=== PATIENT | female | born 1965 | race Caucasian/White ===

== ENCOUNTER → 2016-11-12 | Day surgery (SDC) | payer OTHER ==
[~2016-11-12] VITALS: Ht 162.6 cm; Wt 92.4 kg
[~2016-11-12] MED LIST: NORCO 5-325 TA1 EACH PO; ONE DAILY WOME1 EAC1 PO; PRILOSEC20 MG PO; PROBIOTIC1 EAC1 PO; QUASENSE 0.15-1 EACH PO
--- NOTE | ~2016-11-12 | OR ---
PATIENT'S NAME: RODOLFO PATTERSON [facility] AGE: 51 Y [address] ROOM: [place] [id number] [place] [facility] [facility] [place]: 11/12/2016 OR/Procedure Report DISCHARGE DATE: FAMILY PHYSICIAN: Leydi Abebe APRN ATTENDING PHYSICIAN: Kendall Swift SURGEON: Kendall Swift MD VACUUM EXTRACTOR OPERATOR: Veronica Mauricio PA-C DATE OF PROCEDURE: 11/12/2016 PREOPERATIVE DIAGNOSIS: Symptomatic cholelithiasis. POSTOPERATIVE DIAGNOSIS: Symptomatic cholelithiasis. PROCEDURE PERFORMED: Laparoscopic cholecystectomy. FINDINGS: A single stone was present within the gallbladder. ESTIMATED BLOOD LOSS: 20 mL. COMPLICATIONS: None. INDICATIONS: The patient is a 51-year-old female who presented with abdominal pain consistent with biliary colic. A gallstone was present. We discussed cholecystectomy with the patient; the risks, benefits, and alternatives. She elected to proceed. DESCRIPTION OF PROCEDURE: The patient was taken to the operating room. She was placed supine. She was given IV sedation and subsequently intubated. Her abdomen was prepped with ChloraPrep and sterilely draped. Local anesthetic was infiltrated just superior to the umbilicus. A transverse incision was created. The abdomen was elevated. Veress needle was inserted. Pneumoperitoneum was induced. Following this, a 5 mm trocar was inserted followed by insertion of the camera. There was no injury from initial trocar placement. Three more trocars were then positioned; an 11 mm epigastric, and two 5 mm right subcostal ports. Skin overlying the peritoneum was first anesthetized prior to making these incisions. All 3 of these trocars were inserted under direct visualization. The gallbladder was grasped. It was elevated over the dome of the liver. The infundibulum was grasped and retracted inferiorly and laterally to expose the Calot triangle. The cystic duct and artery were dissected around circumferentially. A critical window was able to be obtained. Both of these structures were then clipped and divided. The gallbladder was then removed from the liver bed using electrocautery. This was grasped and brought up to the epigastric port site. We had difficulty delivering this through the incision. Ultimately, we suctioned bile from the gallbladder and were able to remove the gallbladder PATIENT'S NAME: RODOLFO PATTERSON [facility] AGE: 51 Y [address] ROOM: [place] [address] [place] [facility] [place] DATE: 11/12/2016 OR/Procedure Report DISCHARGE DATE: FAMILY PHYSICIAN: Leydi Abebe APRN ATTENDING PHYSICIAN: Kendall Swift and javed. The liver bed was then inspected. It appeared hemostatic. Clips appeared to be in good position on the cystic duct and artery. The area was irrigated. Fluid was removed. The pneumoperitoneum was released. The trocars were removed. The trocar sites appeared hemostatic. The fascia of the epigastric port site was approximated with 0 Vicryl suture followed by skin closure of all 4 port sites with 4-0 Monocryl suture. Steri-Strips and sterile dressings were placed. The patient was extubated and sent to Recovery in good condition. MD LEONARD ARAIZA/modl /[id number] d: 11/12/161820 t: 11/19/16 1331, OPERATIVE SUMMARY
== END | disposition disaster alternative care site (69) ==
LOC: GPOC 11-11 15:00 → GSDC 08:24
PROC: 0FT44ZZ Resection of Gallbladder, Percutaneous Endoscopic Approach (ICD-10-PCS; principal; 2016-11-12)
DX: K80.20 Calculus of gallbladder without cholecystitis without obstruction (principal); E55.9 Vitamin D deficiency, unspecified; Z87.19 Personal history of other diseases of the digestive system; Z79.899 Other long term (current) drug therapy; Z87.891 Personal history of nicotine dependence; Z88.1 Allergy status to other antibiotic agents; Z98.890 Other specified postprocedural states
CPT/HCPCS: J0694; J1100; J2001; J2405; J3010; J7120